=== PATIENT | male | born 2005 | race Caucasian/White ===

== ENCOUNTER 2023-04-24 23:26 | Emergency (ER) | payer OTHER, BC, SELFPAY ==
[2023-04-24 23:48] VITALS: BP 154/84; PULSE 110; RESP 18; TEMP 36.7; O2SAT 95; BMI 26.4
[2023-04-25] VITALS (39 sets, daily range): BP systolic 121–135; BP diastolic 75–97; PULSE 78–111; RESP 18–20; TEMP 36.6–37; O2SAT 89–98
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
[2023-04-25] MEDS: ONDANSETRON 2 MG/ML inj 4 MG IVP (00:47)
[2023-04-25] MEDS: 0.9 % SODIUM CHLORIDE 1000 ml 1,000 ML IV (00:48)
[2023-04-25 01:04] LABS: Basophils Absolute Auto 0.09 K/uL (0.00-0.30); Basophils Percent Auto 1.7 % (0.0-3.0); Eosinophils Absolute Auto 0.15 K/uL (0.00-0.50); Eosinophils Percent Auto 2.8 % (0.0-7.0); Hematocrit 42.9 % (37.0-53.0); Immature Granulocytes Abs Auto 0.01 K/uL (0.00-0.30); Immature Granulocytes Pct Auto 0.2 %; Lymphocytes Absolute Auto 1.89 K/uL (0.90-2.90); Lymphocytes Percent Auto 35.6 % (20-44); Mean Corpuscular HGB Conc 33 gm/dL (32-36); Mean Corpuscular Hemoglobin 32 pg (26-34); Mean Corpuscular Volume 98 fL (80-100); Monocytes Percent Auto 11.7 % (0.0-11.0); Neutrophils Absolute Auto 2.55 K/uL (1.7-7.0); Platelet Count* 308 K/uL (140-440); RDW Coefficient of Variation % 13.9 % (11.5-15.5); White Blood Count* 5.31 K/uL (4.50-11.00)
--- NOTE | 2023-04-25 01:07 | ED.NURSE ---
Pt started on 2L via NC @ 0053. Sats dip to mid 80's on room air while asleep. Dr. Cervantes aware.
[2023-04-25 01:09] LABS: Slide Review Reflex No
[2023-04-25 01:17] LABS: Albumin* 4.7 g/dL (3.3-5.0); Chloride* 109 mmol/L (96-114); Sodium* 148 mmol/L (135-149)
[2023-04-25 01:18] LABS: Potassium* 4.3 mmol/L (3.6-5.1)
[2023-04-25 01:20] LABS: Anion Gap 11 mEq/L (7-15); Carbon Dioxide* 28 mmol/L (20-32); Creatinine* 0.6 mg/dL (0.6-1.2); Est. Creatinine Clearance* 223.79; Estimated Glomerular Filt Rate 143 ml/min
[2023-04-25 01:21] LABS: Alanine Aminotransferase* 262 U/L (4-50); Alkaline Phosphatase* 49 U/L (65-260); Aspartate Amino Transferase* 334 U/L (12-35); Bilirubin Total* 0.3 mg/dL (0.1-1.5); Blood Urea Nitrogen* 8 mg/dL (5-24); Calcium* 9.3 mg/dL (8.7-10.8); Glucose* 112 mg/dL (60-115); Magnesium* 1.7 mg/dL (1.5-2.6); Total Protein* 7.9 g/dL (6.0-8.3)
[2023-04-25 01:25] LABS: Acetaminophen* < 10.0 ug/mL (10.0-30.0); C Reactive Protein* < 0.5 mg/dL (0.5-1.0); Salicylate* < 1.0 mg/dL (1.0-10)
[2023-04-25 01:30] LABS: Ethanol* 0.53 % (0.01-0.03)
[2023-04-25] MEDS: MAGNESIUM IV 2 GM/50 ML PIGGYBACK IVPB (06:44)
--- NOTE | 2023-04-25 07:45 | ED.NURSE ---
awake and oriented. calm. drinking fluids
--- NOTE | 2023-04-25 10:31 | ED.NURSE ---
wakes to name. wishes to continue to sleep awhile longer
--- NOTE | 2023-04-25 12:07 | ED.NURSE ---
spoke with therapist, with pt's permission and grandmother. pt considering detox at this time. Sonia Bailey evaluating
[2023-04-25] MEDS: LORazepam 1 MG TABLET PO (12:08)
[2023-04-25 12:31] LABS: Appearance Urine Clear (Clear); Bilirubin Urine Negative (Negative); Blood Urine Negative (Negative); Color Urine Dark yellow (Yellow); Glucose Urine Negative (Negative); Ketones Urine Negative (Negative); Leukocyte Esterase Urine Negative (Negative); Nitrite Urine Negative (Negative); Protein Urine 1+ (Negative); Specific Gravity Urine 1.025 (1.000-1.030); Urobilinogen Urine 0.2 (0.2-1.0)
[2023-04-25 12:32] LABS: Ethanol* 0.16 % (0.01-0.03)
[2023-04-25 12:58] LABS: Amphetamine Screen Urine Negative (Negative); Barbiturate Screen Urine Negative (Negative); Benzodiazepines Screen Urine Negative (Negative); Cannabinoid Screen Urine POSITIVE (Negative); Cocaine Screen Urine Negative (Negative); Methadone Screen Urine Negative (Negative); Methamphetamines Screen Urine Negative (Negative); Opiate Screen Urine Negative (Negative); Oxycodone Screen Urine Negative (Negative); Phencyclidine Screen Urine Negative (Negative); Tricyclic Antidepressant Urine Negative (Negative)
[2023-04-25 13:00] LABS: RBC Urine 0-2 (0-2); Squamous Epithelial Cell Urine Few (None-Few)
[2023-04-25 13:01] LABS: Mucus Urine Many
[2023-04-25] MEDS: LORazepam 2 MG/ML inj 1 MG IVP (15:07)
[2023-04-25] MEDS: NICOTINE 21 MG PATCH 1 PATCH TRANSDERMA (15:07)
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
[2023-04-30] MEDS: LORazepam 1 MG TABLET PO (13:13)
== END 2023-04-25 15:19 | disposition other institution (70) ==
PROVIDERS: Family Medicine; Emergency Provider Family Medicine
DX: F10.129 Alcohol abuse with intoxication, unspecified (principal); F19.90 Other psychoactive substance use, unspecified, uncomplicated
CPT/HCPCS: 36415; 80053; 80143; 80179; 80306; 81001; 82077; 83735; 85025; 86140; 94761; 96365; 96375; 99284; A0425; A0426; A9270; J2060; J2405; J3411; J3475; J7030; S4990

== ENCOUNTER 2024-12-13 17:30 | Emergency (ER) | payer OTHER, BC, SELFPAY ==
--- OUTSIDE RECORDS SUMMARY | 2024-12-13 17:32 | XMS_ITS | Clinical Summary ---
Author Organization [facility] Address [address] [place] [address] Care Team Providers Care Clinical Rehabilitation Specialist Name Role Phone Collette Huggins D.O. Primary Care Provider [phone] Source Comments Patient records contain information from all sites at [facility]. For routine questions regarding patient records, call [phone] during business hours, M-F 8:00 AM - 5:00 PM Central Time. Record requests for emergency care only can be directed to [phone] at any time.[facility] Allergies Active Allergy Reactions Criticality Noted Date Comments House Dust Mite Other (see comments) 10/14/2018 Nasal congestion, cough, watery eyes Other reaction(s): *Unknown Nasal congestion, cough, watery eyes Medications * This document contains information received from the source organization and may not represent a complete record from that organization. dextroamphetami ne sulfate (DEXTROSTAT) 10 mg tablet TAKE 1 TABLET BY MOUTH ONCE A DAY IN THE AFTERNOON NO LATER THAN 2PM 3 Active dextroamphetami ne sulfate (DEXEDRINE SPANSULE) 15 mg ER capsule Take 2 capsules by mouth daily. 3 Active dextroamphetami ne sulfate (Dexedrine Spansule) 10 mg ER capsule Take 1 capsule by mouth daily. 4 Active meloxicam (Mobic) 15 mg tabletIndicatio ns:Pain Back Lumbar,Muscle Spasm Of Back Take 1 tablet (15 mg total) by mouth daily. 30 tablet 1 4 Active cyclobenzaprine (FlexeriL) 10 mg tabletIndicatio ns:Pain Back Lumbar,Muscle Spasm Of Back Take 1 tablet (10 mg total) by mouth 3 (three) times a day as needed for muscle spasms. 30 tablet 1 4 Active triamcinolone (Kenalog) 0.1 % ointment Apply 1 Application topically 2 (two) times a day as needed for irritation or rash. Apply to hands . 80 g 11 5 Active folic acid 1 mg tablet Take 1 tablet (1 mg total) by mouth daily. 30 tablet 11 5 Active cyanocobalamin (Vitamin B-12) 1,000 mcg tablet Take 1 tablet (1,000 mcg total) by mouth daily. 90 tablet 3 5 Active Active Problems Problem Noted Date Diagnosed Date Pain Back Lumbar 04/29/2024 Family History Of Human Immunodeficiency Virus H IV Disease 10/03/2021 Fatty Liver 10/03/2021 Cannabis Moderate Or Severe Use Disorder (Dependence) With Intoxication Uncomplicated 09/05/2021 Hypertension Essential Primary 09/05/2021 Testosterone Low 09/05/2021 Hyperlipidemia 09/05/2021 Elevated Liver Enzyme Test 09/05/2021 Asthma Mild Intermittent With History Of Tobacco Use 09/05/2021 Body Mass Index 45.0 To 49.9 Adult 09/05/2021 Assessment & Plan (05/31/2023 12:56 PM CDT): He is low cholesterol an low tg diet and exercise and losing weight. Posttraumatic Stress Disorder Prolonged 01/22/20 19 Attention Deficit Disorder Combined Type 019 Other Psychoactive Substance Moderate Or Severe Use Disorder (Dependence) In Remission 01/02/2019 Panic Disorder Episodic Paroxysmal Anxiety 10/15 Posttraumatic Stress Disorder Brief 03/11/2018 Anxiety Generalized Disorder 11/08/2017 Nicotine Dependence Cigarettes With Withdrawal 0 10/04/2017 Alcohol Moderate Or Severe U se Disorder (Dependence) Uncomplicated 09/18/2017 Cannabis Mild Use Disorder (Abuse) Uncomplicated 09/18/2017 Other Psychoactive Substance Use Unspecified With Psychoactive Substance Induced Mood Disorder 09/18/2017 Disruptive Mood Dysregulation Disorder 8 Assessment & Plan (05/31/2023 12:41 PM CDT): Continue to monitor seeing psychatirst Depression Major Recurrent Mild 01/19/2016 Overview (12/26/2016): Depression Major NOS Asthma Mild Persistent 08/17/2014 Overview (12/26/2016): Asthma Mild Persistent Rhinitis Allergic 08/17/2014 Resolved Problems Problem Noted Date Diagnosed Date Resolved Date Encephalopathy Toxic 01/18/2019 019 Agitation 01/17/2019 01/20/2019 Morbid Obesity Body Mass Ind ex 40.0-44.9 Adult 11/26/2018 09/20/2024 Overweight Pediatric Body Ma ss Index 85-94th Percentile Age 2 Or Older 08/17/2014 09/20/2024 Encounters Date Type Department Care Team Description 10/19/2024 Results Follow-Up Department of Family Medicine, [facility], in [place], [place] [address], [place] [address] Collette Huggins D.O. CBC with Differential, Blood, Comprehensive Metabolic Panel, GGT (Gamma-Glutamyltransfer ase), Additional followed-up results: 4 from Last 3 Months Immunizations Immunization Administration Dates Next Due 4vHPV (discontinued) 04/06/2016,01/19/2016 9vHPV 10/03/2017 DTaP (Infanrix, Tripedia) 08/30/2004,,2003,2002 DTaP-IPV 03/31/2009 HepA Pediatric/Adolescent 04/06/2016,10/04/2015 Hib-HepB 08/30/2004,2003,2003 IPV 08/30/2004,2003,2003 Influenza, Unspecified 06/22/2015,2013,07/04/2013,2011,06/07/2011,06/17/2010,06/23/2008,1 09/09/2006,06/19/2005,05/13/2004 MCV4 (Menactra)(Discontinued) 04/08/2021, 016 MMR 03/31/2009,05/13/2004 PCV7 (discontinued) 2003,2003 PPD Test 01/11/2018 Tdap 09/24/2014 JOANA 03/31/2009,05/13/2004 influenza trivalent vaccine (6 months and older)(PF) 06/29/2017 influenza vaccine quad (FLUZONE/FLUARIX) (6 months and older)(PF) 07/03/2018 Family History Medical History Relation Name Comments SIDS Brother maternal 08/07 2015, probably SIDS Anxiety disorder Maternal Grandmother Asthma Maternal Grandmother Depression Maternal Grandmother Sleep apnea Maternal Grandmother Alcohol abuse Mother Anxiety disorder Mother Depression Mother Drug abuse Mother Schizoaffective disorder Mother chrissy ck therapy. 2016 of possible overdose Suicide Attempts Mother Relation Name Status Comments Brother maternal 08/07 Father Other Maternal Grandmother Alive Mother Alive Social History Tobacco Use Types Packs/Day Years Used Date Smoking Tobacco: Every Day Cigarettes 3 7 Passive Smoke Exposure: Current Smokeless Tobacco: Current Snuff Tobacco Cessation:Ready to Q uit: Not Asked; Counseling Given: Not Answered Comments:Smokes about 3-5 cigarettes per day. Uses nicotine gum. Alcohol Use Standard Drinks/Week Comments Yes 4 (1 standard drink = 0.6 oz pure alcohol) Drinking 4 drinks each day, has been cutting back in the last month [facility] Utilities Answer Date Recorded In the past 12 months has [employer] gas, oil, or water [employer] threatened to shut off services in your home? No 09/04/2024 PHQ-2 Answer Date Recorded PHQ-2 Score 1 09/04/2024 Exercise Vital Sign Answer Date Recorde d On average, how many days pe r week do you engage in moderate to strenuous exercise (like a brisk walk)? 5 days 09/04/2024 On average, how many minutes do you engage in exercise at this level? 90 min 09/04/2024 Hunger Vital Sign Answer Date Recorded Within the past 12 months, y ou worried that your food would run out before you got the money to buy more. Never true 09/04/19 25 Within the past 12 months, t he food you bought just didn't last and you didn't have money to get more. Never true 09/04/2024 PRAPARE - Transportation Answer Date Re corded In the past 12 months, has l ack of transportation kept you from medical appointments or from getting medications? Patient declined 09/04/2024 In the past 12 months, has l ack of transportation kept you from meetings, work, or from getting things needed for daily living? Patient declined 09/04/2024 Depression Answer Date Recor ded PHQ-9 Total Score (max 27) 8 09/04 Nutrition Answer Date Recorded On average, how many serving s of fruits and vegetables do you eat per day (serving size is equal to 1 cup or approximately the size of a tennis ball)? 3-5 09/04/2024 Dental Answer Date Recorded Dental: Regular Dentist No 09/04/19 Employment Answer Date Recorded Employment status Employed and actively working without restrictions 09/04/2024 Housing Stability Answer Date Recorded What is your living situation today? I h ave a place to live today, but I am worried about losing it in the future 09/04/2024 Sex and Gender Information Value Date Recorded Sex Assigned at Male 09/04/2024 8:44 AM SENIOR CYBER INTELLIGENCE ANALYST Legal Sex Male 5:30 AM SENIOR CYBER INTELLIGENCE ANALYST Gender Identity Male 09/04/2024 8:44 AM SENIOR CYBER INTELLIGENCE ANALYST Sexual Orientation Straight 09/04/2024 8: 44 AM SENIOR CYBER INTELLIGENCE ANALYST Last Filed Vital Signs Vital Sign Reading Time Taken Comments Blood Pressure 122/78 09/04/2024 9:12 AM SENIOR CYBER INTELLIGENCE ANALYST Rec heck Pulse 109 09/04/2024 9:08 AM SENIOR CYBER INTELLIGENCE ANALYST Temperature 36.7 C (98.1 F) 09/04/2024 9:08 AM SENIOR CYBER INTELLIGENCE ANALYST Respiratory Rate 18 10/03/2021 2:56 PM SENIOR CYBER INTELLIGENCE ANALYST Oxygen Saturation 100% 07/05/2021 2:27 PM SENIOR CYBER INTELLIGENCE ANALYST Inhaled Oxygen Concentration - - Weight 110 kg (243 lb 2.7 oz) 09/04/2024 9:08 AM SENIOR CYBER INTELLIGENCE ANALYST Height 184.5 cm (6' 0.64) 09/04/2024 9:08 AM CS T Body Mass Index 32.4 09/04/2024 9:08 AM SENIOR CYBER INTELLIGENCE ANALYST Plan of Treatment Health Maintenance Due Date Last Done Comments 1 week Well Child Check-Up 2003 1 month Well Child Check-Up 2003 2 month Well Child Check-Up 2003 4 month Well Child Check-Up 2003 9 month Well Child Check-Up 2003 15 month Well Child Check-Up 06/30/2004 18 month Well Child Check-Up 09/30/2004 2 year Well Child Check-Up 03/30/2005 30 month Well Child Check-Up 09/30/2005 3 year Well Child Check-Up 03/30/2006 Well Child Check-Up Completed in Past Year 03/30/2006 5 year Well Child Check-Up 03/30/2008 6 year Well Child Check-Up 03/30/2009 7 year Well Child Check-Up 03/30/2010 8 year Well Child Check-Up 03/30/2011 10 year Well Child Check-Up 03/30/2013 12 year Well Child Check-Up 03/30/2015 13 year Well Child Check-Up 03/30/2016 14 year Well Child Check-Up 03/30/2017 15 year Well Child Check-Up 03/30/2018 16 year Well Child Check-Up 04/26/2019 17 year Well Child Check-Up 03/30/2020 18 year Well Child Check-Up 03/30/2021 19 year Well Child Check-Up 03/30/2022 Pneumococcal vaccine (0-49 years) (1 of 2 - PCV) 2022 2003, 2003 19 year Well Child Check-Up 03/30/2024 Well Child Check-Up (WCC) 03/30/2024 COVID-19 Vaccine ( - season) 2024 Influenza Vaccine (#1) 2024 8, 06/29/2017, 06/22/2015, Additional history exists DTaP,Tdap,and Td Vaccines (7 - Td or Tdap) 09/24/2024 09/24/2014, 03/31/2009, 08/30/2004, Additional history exists Asthma Action Plan 10/16/2024 10/17/2023, 0 02/01/2017, 07/04/2016 Asthma Control Test Questionnaire 10/16/2024 09/04/2024, 07/18/2023, 05/31/2023, Additional history exists Depression Monitoring (PHQ-9) 01/02/2025 09/04/2024 TB Screening during Well Child Visit 04/29/2025 04/29/2024 Tobacco Cessation counseling 04/29/2025 04/29/2024 Visit: Chronic Disease, age 18+ 04/29/2025 04/29/2024 Asthma Management/Exacerbation Questionnaire (AMQ/AEQ) 09/04/2025 09/04/2024, 07/18/2023 Office Visit for Blood Pressure Check / Re-check 09/04/2025 09/04/2024 Lipid (Cholesterol) Screening 09/09/2025 09/09/2024, 06/01/2023, 08/19/2021, Additional history exists Hepatitis B Vaccines Completed 08/30/2004, 2003, 2003 IPV Vaccines Completed 03/31/2009, 08/07, 2003, Additional history exists Varicella Vaccines Completed 03/31/2009, 05/13/2004 Hepatitis A Vaccines Completed 04/06/2016, 10/04/19 16 HPV Vaccines Completed 10/03/2017, 08/2015, 01/19/2016 Meningococcal Vaccine Completed 04/08/2021, 016 HIV Screening Completed 10/05/2021 Hearing Screening during Well Child Visit Addressed 05/30/2023 (Performed elsewhere) Overridden with the intention of not completing the topic 20 year Well Child Check-Up Completed 05/31/2023 Depression Monitoring (PHQ-9 for quality tracking) Completed 09/04/2024 Procedures Procedure Name Priority Date/Time Associated Diagnosis Comments LIPID PANEL, S Routine 09/09/2024 12:17 PM SENIOR CYBER INTELLIGENCE ANALYST Alcohol Moderate Or Severe Use Disorder (Dependence) Uncomplicated (HCC) Cannabis Moderate Or Severe Use Disorder (Dependence) With Intoxication Uncomplicated (HCC) Nicotine Dependence Cigarettes With Withdrawal Attention Deficit Disorder Combined Type Disruptive Mood Dysregulation Disorder (HCC) Dermatitis Hand Anemia B12 Deficiency Dietary Folate Deficiency Anemia Hyperlipidemia Mixed Fatty Liver Alcoholic HIV-1/-2 AG AND AB SCREEN, PLASMA Routine 10/05/2021 3:45 PM SENIOR CYBER INTELLIGENCE ANALYST Family History Of Human Immunodeficiency Virus HIV Disease from Last 3 Months or Most Recently Relevant to Health Maintenance Results * Lipid Panel (09/09/2024 12:17 PM SENIOR CYBER INTELLIGENCE ANALYST) Triglycerides 66 mg/dL 09/09/2024 1:37 PM SENIOR CYBER INTELLIGENCE ANALYST [facility]AT Comment: ----REFERENCE VALUE---- Normal: <150 mg/dL Borderline High: 150-199 mg/dL High: 200-499 mg/dL Very High: > or =500 mg/dL Cholesterol, Total 168 mg/dL 2024 1:37 PM SENIOR CYBER INTELLIGENCE ANALYST [employer]AT Comment: ----REFERENCE VALUE---- Desirable: < 200 mg/dL Borderline High: 200 - 239 mg/dL High: > or = 240 mg/dL Cholesterol, LDL, Calculated 92 mg/dL 09/09/2024 1:37 PM SENIOR CYBER INTELLIGENCE ANALYST [employer]AT Comment: ----REFERENCE VALUE---- Desirable: <100 mg/dL Above Desirable: 100-129 mg/dL Borderline High: 130-159 mg/dL High: 160-189 mg/dL Very High: >=190 mg/dL ----ADDITIONAL INFORMATION---- LDL cholesterol calculated using the Mcnair/NIH equation. Cholesterol, HDL 63 >=40 mg/dL 09/09/19 1:37 PM SENIOR CYBER INTELLIGENCE ANALYST OWAT Cholesterol, Non-HDL, Calculated 105 mg/dL 09/09/2024 1:37 PM SENIOR CYBER INTELLIGENCE ANALYST [employer] Comment: ----REFERENCE VALUE---- Desirable: <130 mg/dL Above Desirable: 130-159 mg/dL Borderline High: 160-189 mg/dL High: 190-219 mg/dL Very High: > or =220 mg/dL Fasting (8 HR or more) Yes 09/09/2024 12:17 PM SENIOR CYBER INTELLIGENCE ANALYST [employer]AT Blood (Blood, Venous) 09/09/2024 12:17 PM SENIOR CYBER INTELLIGENCE ANALYST 09/09/2024 12:21 PM SENIOR CYBER INTELLIGENCE ANALYST us Collette Huggins D.O. LAB BLOOD ADD-ON Final Result [facility] [address] [place] [address], [facility] [place] [address] [place] [address] * HIV-1/-2 Ag and Ab Screen, Plasma (10/05/2021 3:45 PM SENIOR CYBER INTELLIGENCE ANALYST) Pathologist [facility] HIV Ag/Ab Screen, P Negative Negative 10/06/2021 1:13 PM SENIOR CYBER INTELLIGENCE ANALYST [facility] Comment: Negative result does not rule out HIV infection. If exposure to HIV infection occurred <14 days ago, contact the laboratory to request addition of HIV-1 RNA detection / quantification test. HIV-1 p24 Ag Screen, P Negative Negative 10/06/2021 1:13 PM SENIOR CYBER INTELLIGENCE ANALYST [facility] Comment: Negative result does not rule out HIV infection. If exposure to HIV infection occurred <14 days ago, contact the laboratory to request addition of HIV-1 RNA detection / quantification test. HIV-1 Ab Screen, P Negative Negative 2021 1:13 PM SENIOR CYBER INTELLIGENCE ANALYST [facility] Comment: Negative result does not rule out HIV infection. If exposure to HIV infection occurred <14 days ago, contact the laboratory to request addition of HIV-1 RNA detection / quantification test. HIV-2 Ab Screen, P Negative Negative 2021 1:13 PM SENIOR CYBER INTELLIGENCE ANALYST [facility] Comment: Negative result does not rule out HIV infection. If exposure to HIV infection occurred <14 days ago, contact the laboratory to request addition of HIV-1 RNA detection / quantification test. Blood (Blood, Venous) 10/05/2021 3:45 PM SENIOR CYBER INTELLIGENCE ANALYST 10/06/2021 11:18 AM SENIOR CYBER INTELLIGENCE ANALYST Latasha Boykin M.D. LAB MICROBIOLOGY - BLOOD O RDERABLES Final Result [facility] [address] [place] [address], [facility] [place] [address] [place] [address] from Last 3 Months or Most Recently Relevant to Health Maintenance Insurance [facility] [place] [address] [employer] Advance Directives For more information, please contact: [phone] * Full Code (Latest Code Status on File) Date Activated Date Inactivated Comments 01/18/2019 5:12 PM 01/24/2019 1:59 PM Question Answer Comments Full Code: Not Discussed Due to: Not medically appropriate * Full Code Date Activated Date Inactivated Comments 01/17/2019 10:12 PM 01/18/2019 4:15 PM Question Answer Comments Full Code: Not Discussed Due to: Not medically appropriate Care Teams Clinical Rehabilitation Specialist Relationship Specialty Start Date End Date Collette Huggins D.O. [address] [facility] [place] [address] PCP - General Family Medicine 05/28/23
--- OUTSIDE RECORDS SUMMARY | 2024-12-13 17:32 | XMS_ITS | Encounter Summary ---
Author Organization [facility] Address [address] [place] [address] Care Team Providers Care Manager Search Engine Name Role Phone Collette Huggins D.O. Primary Care Provider [phone] Encounter Details Date Type Department Care Team (Latest Contact Info) Description 10/19/2024 Results Follow-Up Department of Family Medicine, [facility], in [place], [place] [address] [address] Collette Huggins D.O. [address] [address] CBC with Differential, Blood, Comprehensive Metabolic Panel, GGT (Gamma-Glutamyltransfe rase), Additional followed-up results: 4 Social History Tobacco Use Types Packs/Day Years Used Date Smoking Tobacco: Every Day Cigarettes 3 7 Passive Smoke Exposure: Current Smokeless Tobacco: Current Snuff Comments:Smokes about 3-5 ci garettes per day. Uses nicotine gum. Alcohol Use Standard Drinks/Week Comments Yes 4 (1 standard drink = 0.6 oz pure alcohol) Drinking 4 drinks each day, has been cutting back in the last month [facility] Utilities Answer Date Recorded In the past 12 months has [employer] electric, gas, oil, or water company threatened to shut off services in your [...] money to buy more. Never true 09/04/19 Within the past 12 months, t he [...] Sex Assigned at Male 09/04/2024 8:44 AM PHYSICAL SCIENCE PROFESSOR Legal Sex Male 5:30 AM PHYSICAL SCIENCE PROFESSOR Gender Identity Male 09/04/2024 8:44 AM PHYSICAL SCIENCE PROFESSOR Sexual Orientation Straight 09/04/2024 8: 44 AM PHYSICAL SCIENCE PROFESSOR documented as of this encounter Miscellaneous Notes * Result Encounter Note - Collette Huggins D.O. - 10/19/2024 7:42 PM CDT B12 is elevated because he is getting enough in his diet. GGT normal Folate normal Comprehensive normal Thyroid normal and lipid panel normal documented in this encounter Plan of Treatment Not on file documented as of this encounter Visit Diagnoses Not on filedocumented in this encounter Additional Health Concerns Assessment Noted Time PHQ-9 Depression Total Score: 8 09/04/19 25 8:39 AM PHYSICAL SCIENCE PROFESSOR documented as of this encounter Care Teams Manager Search Engine Relationship Specialty Start Date End Date Collette Huggins D.O. [address] [place] [address] PCP - General Family Medicine 05/28/23 documented as of this encounter
--- OUTSIDE RECORDS SUMMARY | 2024-12-13 17:32 | XMS_ITS | Clinical Summary ---
Author Organization [facility] Address [address] [place] [address] Care Team Providers Care Radiological Engineer Name Role Phone Katlyn Persaud MD Primary Care Provider + Allergies Active Allergy Reactions Criticality Noted Date Comments House Dust Mite *Unknown 10/14/2018 Nasal congestion, cough, watery eyes Medications montelukast (SINGULAIR) 10 mg tablet Take 10 mg by mouth at bedtime. 1 7 Active fexofenadine (DEVANTE) 180 mg tablet Take 1 tablet by mouth once daily. 7 Active albuterol HFA 90 mcg/actuation inhalerIndications :Smoking Inhale 1-2 Puffs by mouth 4 times daily if needed. 1 Inhaler 9 Active amitriptyline (ELAVIL) 50 mg tabletIndications: Psychophysiologica l insomnia,ADHD (attention deficit hyperactivity disorder), combined type,Disruptive mood dysregulation disorder (HC),Trauma and stressor-related disorder TAKE 1 TABLET BY MOUTH AT BEDTIME 30 tablet 0 Active topiramate (TOPAMAX) 100 mg tabletIndications: DMDD (disruptive mood dysregulation disorder) (HC),Psychophysiol ogical insomnia,Weight loss TAKE 1 TABLET BY MOUTH AT BEDTIME 30 tablet 0 Active lisdexamfetamine (VYVANSE) 50 mg capsuleIndications :ADHD (attention deficit hyperactivity disorder), combined type Take 1 capsule by mouth once daily 30 capsule 0 Active Active Problems Problem Noted Date Diagnosed Date Polysubstance dependence in early, early partial, sustained full, or sustained partial remission 01/02/2019 Obesity (BMI 35.0-39.9 without comorbidity) 11/05 DMDD (disruptive mood dysregulation disorder) ADHD (attention deficit hype ractivity disorder), combined type 10/15/2018 Panic attacks 10/15/2018 Controlled substance agreement signed 09/09/2018 Overview (09/09/2018): Signed 09/09/18 Dr Saige Hall Psychiatry Trauma and stressor-related disorder 03/11/2018 ADHD (attention deficit hyperactivity disorder) evaluation 01/04/2018 Psychophysiological insomnia 01/04/2018 Alcohol dependence 09/18/2017 Cannabis abuse 09/18/2017 Substance induced mood disorder 09/18/2017 Disruptive mood dysregulation disorder 8 Nicotine dependence 09/14/2017 Family History Medical History Relation Name Comments No Known Problems Maternal Grandfather No Known Problems Maternal Grandmother Drug Abuse Mother The patient's m om of a drug overdose in 2016. Relation Name Status Comments Maternal Grandfather Alive Maternal Grandmother Alive Mother Social History Tobacco Use Types Packs/Day Years Used Date Smoking Tobacco: Every Day Cigarettes 0.3 1 Smokeless Tobacco: Never Tobacco Cessation:Ready to Q uit: Yes; Counseling Given: Yes Alcohol Use Standard Drinks/Week Comments Yes 0 (1 standard drink = 0.6 oz pure alcohol) occasional sometimes drink to blackout PHQ-2 Answer Date Recorded PHQ-2 Score 3 10/15/2018 Sex and Gender Information Value Date Recorded Sex Assigned at Not on file Legal Sex Male 3:08 PM ELECTROMEDICAL SERVICE ENGINEER Gender Identity Not on file Sexual Orientation Not on file Obstetrics History Last Filed Vital Signs Vital Sign Reading Time Taken Comments Blood Pressure 156/111 03/03/2023 6:19 AM CDT Pulse 117 03/03/2023 6:19 AM CDT Temperature 37.1 C (98.8 F) 03/03/2023 6:19 AM CDT Respiratory Rate 18 03/03/2023 6:19 AM CDT Oxygen Saturation 96% 03/03/2023 6:19 AM CDT Inhaled Oxygen Concentration - - Weight 117.9 kg (260 lb) 03/03/2023 6:18 AM CDT Height 182.9 cm (6') 03/03/2023 6:18 AM CDT Body Mass Index 35.26 03/03/2023 6:18 AM CDT Plan of Treatment Health Maintenance Due Date Last Done Comments Tdap 2014 HIV for age 15-65 2018 HPV series for age 9-26 (1 - Male 3-dose series) 2018 Depression screening for age 12+ 10/13/2020 10/14/2019, 06/05/2019, 04/03/2019, Additional history exists BMI (ht and wt on same day) for age 18+ 2021 Hepatitis C screening for age 18-79 2021 Pneumococcal series for age 6-49 (1 of 2 - PCV) 2022 Tetanus booster 2023 COVID-19 vaccine series (1 - season) 2024 Influenza Vaccine (Season Ended) 2025 Meningococcal series for age 11-21 Aged Out No longer eligible based on patient's age to complete this topic Insurance [place]AK [place]LLADO [id number] etouches [facility] on file ISAK [place]LLADO [id number] eriQoo [facility] [employer] [facility] [employer] [facility] [employer] Advance Directives * Full Code (Latest Code Status on File) Date Activated Date Inactivated Comments 09/17/2017 10:35 AM 09/19/2017 2:06 PM Question Answer Comments Code Status Discussion: Not Discussed Care Teams Radiological Engineer Relationship Specialty Start Date End Date Katlyn Persaud MD [address] [facility] [place] [address] PCP - General Pediatric 06/23/17
[2024-12-13 17:33] VITALS: BP 150/102; PULSE 892; RESP 18; TEMP 36.6; O2SAT 99; BMI 29.0
--- NOTE | 2024-12-13 17:52 | ED.GENADULT ---
HPI - General Adult General Chief complaint: Extremity Pain/Injury, Upper Stated complaint: Right arm pain and swelling Time Seen by Provider: 12/13/24 17:51 History of Present Illness HPI narrative: patient was napping this afternoon and when woke up the right arm was discolored, swelling, redness to hands, tingling , numbness, and shooting pain in the right arm. 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 this has gradually getting worse. 19-year-old young man presenting to the emergency department with concern right arm swelling. Had been sleeping or napping this afternoon and when he woke the right arm was swollen and discolored with some redness in tingling and numbness and shooting pain. This has admittedly improved a little bit. Has also been struggling with some rash or redness around the wrists and base of the hands. Does wear what mom describes as neoprene gloves while drumming practicing a couple hours a few times work. Also has a somewhat physical job. Involves a lot a lifting and can feel tingling in to the medial finger tips. This has been going on for some months. Does not have neck or back issues. No shortness of breath or exercise intolerance described. Also mentioned is that she suspects him to be due for tetanus update. Job could result in potential exposure. Related Data Home Medications ?Medication ?Instructions ?Recorded ?Confirmed dextroamphetamine sulfate 10 mg 10 mg PO DAILY PRN attention 04/24/23 12/13/24 capsule,extended release deficit hyperactivity disorder dextroamphetamine sulfate 15 mg 30 mg PO QAM 04/24/23 12/13/24 capsule,extended release acetylcysteine 600 mg capsule (NAC) 600 mg PO DAILY 12/13/24 12/13/24 Allergies Allergy/AdvReac Type Severity Reaction Status Date / Time No Known Drug Allergies Allergy Verified 12/13/24 17:45 Review of Systems Status of ROS: Reports: 6 or more systems reviewed and unremarkable except as noted in History and below [facility] Medical History Substance induced mood disorder ?F19.94 - Other psychoactive substance use, unspecified with psychoactive substance-induced mood disorder (ICD-10) Cannabis abuse ?F12.10 - Cannabis abuse, uncomplicated (ICD-10) Alcohol dependence ?F10.20 - Alcohol dependence, uncomplicated (ICD-10) Psychophysiologic insomnia ?F51.04 - Psychophysiologic insomnia (ICD-10) Trauma and stressor-related disorder ?F43.9 - Reaction to severe stress, unspecified (ICD-10) Controlled substance agreement signed ?Z79.899 - Other rn long term care (current) drug therapy (ICD-10) Panic attacks ?F41.0 - Panic disorder [episodic paroxysmal anxiety] (ICD-10) ADHD (attention deficit hyperactivity disorder) ?F90.9 - Attention-deficit hyperactivity disorder, unspecified type (ICD-10) DMDD (disruptive mood dysregulation disorder) ?F34.81 - Disruptive mood dysregulation disorder (ICD-10) Obesity ?E66.9 - Obesity, unspecified (ICD-10) Polysubstance abuse ?F19.10 - Other psychoactive substance abuse, uncomplicated (ICD-10) Smoking ?F17.200 - Nicotine dependence, unspecified, uncomplicated (ICD-10) Substance abuse ?F19.10 - Other psychoactive substance abuse, uncomplicated (ICD-10) Anxiety and depression ?F41.9 - Anxiety disorder, unspecified (ICD-10) ?F32.A - Depression, unspecified (ICD-10) Chronic alcohol abuse ?F10.10 - Alcohol abuse, uncomplicated (ICD-10) Social History Smoking Status: Current every day smoker How often do you have a drink containing alcohol: 4 or more times a week How many standard drinks containing alcohol do you have on a typical day: 10 or more How often do you have six or more drinks on one occasion: Daily or almost daily AUDIT-C Alcohol total score: 12 Non-prescribed substance use: marijuana (any form) and amphetamines/methamphetamines Exam Narrative: Exam Narrative: Mild erythema in his somewhat band about both wrists right greater than left. Ali suggestion of some confluent speckling. Not infectious though. Generally faintly erythematous hand right greater than left but without induration to suggest cellulitis. Is well-perfused peripherally. No loss of sensation. Good function good strength. No swelling in the supraclavicular area. Neck is supple. Phalen's is negative. Tinel's is somewhat positive. Overhead stress to gravity is uncomfortable but not really positive. Symptoms are somewhat reproduced also by palpation of the ulnar groove. This is bilateral. Const: Vital Signs, click to edit/add: Vital Signs - 24 hr 12/13/24 17:33 Temperature 97.9 F Pulse Rate [Pulse Oximeter] 892 H Respiratory Rate 18 Blood Pressure [Le ft Upper Arm] 150/102 H Pulse Oximetry 99 Oxygen Delivery Me thod Room Air Documenting provider has reviewed patient's vital signs: yes Course Vital Signs Vital signs: Initial Vital Signs Temperature 97.9 F 12/13/24 17:33 Temperature Source Temporal Artery Scan 12/13/24 17:33 Pulse Rate 892 H 12/13/24 17:33 Respiratory Rate 18 12/13/24 17:33 Blood Pressure 150/102 H 12/13/24 17:33 Blood Pressure Mean 118 H 12/13/24 17:33 Blood Pressure Position Sitting 12/13/24 17:33 Pulse Oximetry 99 12/13/24 17:33 Oxygen Delivery Method Room Air 12/13/24 17:33 Vital Signs Temperature 97.9 F 12/13/24 17:33 Pulse Rate 892 H 12/13/24 17:33 Respiratory Rate 18 12/13/24 17:33 Blood Pressure 150/102 H 12/13/24 17:33 Pulse Oximetry 99 12/13/24 17:33 Oxygen Delivery Method Room Air 12/13/24 17:33 Temperature 97.9 F 12/13/24 17:33 Pulse Rate 892 H 12/13/24 17:33 Respiratory Rate 18 12/13/24 17:33 Blood Pressure 150/102 H 12/13/24 17:33 Pulse Oximetry 99 12/13/24 17:33 Oxygen Delivery Method Room Air 12/13/24 17:33 Medications Administered Medications: Discontinued Medications Generic Name Dose Route Start Last Admin Trade Name Freq PRN Reason Stop Dose Admin Diphtheria/Tetanus/Acell Pertussis 0.5 ml 12/13/24 18:56 12/13/24 19:04 Tetanus/Diphth/Pertussis 0.5 Ml Syringe IM 12/13/24 18:57 0.5 ml .ONCE ONE Administration Medical Decision Making MDM Narrative Medical decision making narrative: I think symptoms here today but really brought him in was falling asleep on the right arm for excessive period of time. Appears to be developing somewhat of a dermatitis possibly related to sweating within his gloves or the actual gloves. In addition seems to have symptoms of an ulnar neuropathy along with possibly some median nerve irritation. This might be related both to job as well as regular drumming. This does not clearly seem to be a thoracic outlet issue. I did discuss potential imaging verses follow-up in primary care. Over time in the emergency department, right arm symptoms seem to have improved significantly. Following Adacel/DTaP update, they would prefer to follow-up in primary care. See patient discharge plan for further discussion As discussed you may have a bit of dermatitis or reaction to the gloves or maybe sweating within the gloves that is occurring regularly. Might need to try some other options and rotate them? You also appear to be having discomfort in your finger tips not inconsistent with repeated activities that might be irritating both the median nerve and the ulnar nerve. Yes. I would follow-up with your primary care provider to discuss/evaluate this further and consider physical therapy involvement/suggestions. Medical Records Medical records reviewed: Yes I reviewed the patient's medical records Discharge Plan Discharge Clinical Impression: Radiculopathy Patient Disposition: Home w/ Parent or Adult Condition: Improved Additional Instructions: As discussed you may have a bit of dermatitis or reaction to the gloves or maybe sweating within the gloves that is occurring regularly. Might need to try some other options and rotate them? You also appear to be having discomfort in your finger tips not inconsistent with repeated activities that might be irritating both the median nerve and the ulnar nerve. Yes. I would follow-up with your primary care provider to discuss/evaluate this further and consider physical therapy involvement/suggestions. Prescriptions: No Action dextroamphetamine sulfate 15 mg capsule, extended release 30 mg PO QAM dextroamphetamine sulfate 10 mg capsule, extended release 10 mg PO DAILY PRN (Reason: attention deficit hyperactivity disorder) acetylcysteine [NAC] 600 mg capsule 600 mg PO DAILY Follow Up/Referrals: Provider,Not a Local [Primary Care Provider] - Stand Alone [facility]: [facility] Info Instructions
[2024-12-13] MEDS: TETANUS/DIPHTH/PERTUSSIS 0.5 ML SYRINGE IM (19:04)
--- OUTSIDE RECORDS SUMMARY | 2024-12-13 19:12 | XMS_ITS | Encounter Summary ---
Author Organization [facility] Address [address] [place] [address] Care Team Providers Care Control Integration Engineer Name Role Phone Collette Huggins D.O. Primary Care Provider [phone] Encounter Details Date Type Department Care Team (Latest Contact Info) Description 10/19/2024 Results Follow-Up Department of Family Medicine, [facility], in [place], [place] [address] [address] Collette Huggins D.O. [address] [address] CBC with Differential, Blood, Comprehensive [...] been cutting back in the last month [facility] Utilities Answer Date Recorded In the past 12 months has [employer] electric, gas, oil, or water company threatened [...] Sex Assigned at Male 09/04/2024 8:44 AM BEAUTY OPERATOR Legal Sex Male 5:30 AM BEAUTY OPERATOR Gender Identity Male 09/04/2024 8:44 AM BEAUTY OPERATOR Sexual Orientation Straight 09/04/2024 8: 44 AM BEAUTY OPERATOR documented as of this encounter Miscellaneous Notes [...] Total Score: 8 09/04/19 25 8:39 AM BEAUTY OPERATOR documented as of this encounter Care Teams Control Integration Engineer Relationship Specialty Start Date End Date Collette Huggins D.O. [address] [place] [address] PCP - General Family Medicine 05/28/23 documented as of this encounter
--- OUTSIDE RECORDS SUMMARY | 2024-12-13 19:12 | XMS_ITS | Clinical Summary ---
Author Organization [facility] Address [address] [place] [address] Care Team Providers Care Manager Customer Name Role Phone Collette Huggins D.O. Primary Care Provider [phone] Source Comments Patient records contain information from all sites at [facility]. For routine questions regarding patient records, call [phone] during business hours, M-F 8:00 AM - 5:00 PM Central Time. Record requests for emergency care only can be directed to [phone] at any time.[facility] Allergies Active Allergy Reactions Criticality Noted Date [...] 10/19/2024 Results Follow-Up Department of Family Medicine, [facility], in [place], [place] [address] [place] [address] Collette Huggins D.O. CBC with [...] been cutting back in the last month [facility] Utilities Answer Date Recorded In the past 12 months has [employer] gas, oil, or water [employer] threatened to shut off services in your [...] Sex Assigned at Male 09/04/2024 8:44 AM PICKLE PROCESSOR Legal Sex Male 5:30 AM PICKLE PROCESSOR Gender Identity Male 09/04/2024 8:44 AM PICKLE PROCESSOR Sexual Orientation Straight 09/04/2024 8: 44 AM PICKLE PROCESSOR Last Filed Vital Signs Vital Sign Reading Time Taken Comments Blood Pressure 122/78 09/04/2024 9:12 AM PICKLE PROCESSOR Rec heck Pulse 109 09/04/2024 9:08 AM PICKLE PROCESSOR Temperature 36.7 C (98.1 F) 09/04/2024 9:08 AM PICKLE PROCESSOR Respiratory Rate 18 10/03/2021 2:56 PM PICKLE PROCESSOR Oxygen Saturation 100% 07/05/2021 2:27 PM PICKLE PROCESSOR Inhaled Oxygen Concentration - - Weight 110 kg (243 lb 2.7 oz) 09/04/2024 9:08 AM PICKLE PROCESSOR Height 184.5 cm (6' 0.64) 09/04/2024 9:08 AM CS T Body Mass Index 32.4 09/04/2024 9:08 AM PICKLE PROCESSOR Plan of Treatment Health Maintenance Due Date [...] LIPID PANEL, S Routine 09/09/2024 12:17 PM PICKLE PROCESSOR Alcohol Moderate Or Severe Use Disorder (Dependence) Uncomplicated (HCC) Cannabis Moderate Or Severe Use Disorder (Dependence) With Intoxication Uncomplicated (HCC) Nicotine Dependence Cigarettes With Withdrawal Attention Deficit Disorder Combined Type Disruptive Mood Dysregulation Disorder (HCC) Dermatitis Hand Anemia B12 Deficiency Dietary Folate Deficiency Anemia Hyperlipidemia Mixed Fatty Liver Alcoholic HIV-1/-2 AG AND AB SCREEN, PLASMA Routine 10/05/2021 3:45 PM PICKLE PROCESSOR Family History Of Human Immunodeficiency Virus HIV Disease from Last 3 Months or Most Recently Relevant to Health Maintenance Results * Lipid Panel (09/09/2024 12:17 PM PICKLE PROCESSOR) Triglycerides 66 mg/dL 09/09/2024 1:37 PM PICKLE PROCESSOR [facility]AT Comment: ----REFERENCE VALUE---- Normal: <150 mg/dL Borderline High: 150-199 mg/dL High: 200-499 mg/dL Very High: > or =500 mg/dL Cholesterol, Total 168 mg/dL 2024 1:37 PM PICKLE PROCESSOR [facility]AT Comment: ----REFERENCE VALUE---- Desirable: < 200 mg/dL Borderline High: 200 - 239 mg/dL High: > or = 240 mg/dL Cholesterol, LDL, Calculated 92 mg/dL 09/09/2024 1:37 PM PICKLE PROCESSOR [facility]AT Comment: ----REFERENCE VALUE---- Desirable: <100 mg/dL Above Desirable: 100-129 mg/dL Borderline High: 130-159 mg/dL High: 160-189 mg/dL Very High: >=190 mg/dL ----ADDITIONAL INFORMATION---- LDL cholesterol calculated using the Mcnair/NIH equation. Cholesterol, HDL 63 >=40 mg/dL 09/09/19 1:37 PM PICKLE PROCESSOR OWAT Cholesterol, Non-HDL, Calculated 105 mg/dL 09/09/2024 1:37 PM PICKLE PROCESSOR OWAT Comment: ----REFERENCE VALUE---- Desirable: <130 mg/dL Above Desirable: 130-159 mg/dL Borderline High: 160-189 mg/dL High: 190-219 mg/dL Very High: > or =220 mg/dL Fasting (8 HR or more) Yes 09/09/2024 12:17 PM PICKLE PROCESSOR OWAT Blood (Blood, Venous) 09/09/2024 12:17 PM PICKLE PROCESSOR 09/09/2024 12:21 PM PICKLE PROCESSOR us Collette Huggins D.O. LAB BLOOD ADD-ON Final Result [facility] [address] [place] [address], [facility] [place] [address] [place] [address] * HIV-1/-2 Ag and Ab Screen, Plasma (10/05/2021 3:45 PM PICKLE PROCESSOR) Pathologist [facility] [place] HIV Ag/Ab Screen, P Negative Negative 10/06/2021 1:13 PM PICKLE PROCESSOR [facility] Comment: Negative result does not rule out HIV infection. If exposure to HIV infection occurred <14 days ago, contact the laboratory to request addition of HIV-1 RNA detection / quantification test. HIV-1 p24 Ag Screen, P Negative Negative 10/06/2021 1:13 PM PICKLE PROCESSOR [facility] Comment: Negative result does not rule out HIV infection. If exposure to HIV infection occurred <14 days ago, contact the laboratory to request addition of HIV-1 RNA detection / quantification test. HIV-1 Ab Screen, P Negative Negative 2021 1:13 PM PICKLE PROCESSOR [facility] Comment: Negative result does not rule out HIV infection. If exposure to HIV infection occurred <14 days ago, contact the laboratory to request addition of HIV-1 RNA detection / quantification test. HIV-2 Ab Screen, P Negative Negative 2021 1:13 PM PICKLE PROCESSOR [facility] Comment: Negative result does not rule out HIV infection. If exposure to HIV infection occurred <14 days ago, contact the laboratory to request addition of HIV-1 RNA detection / quantification test. Blood (Blood, Venous) 10/05/2021 3:45 PM PICKLE PROCESSOR 10/06/2021 11:18 AM PICKLE PROCESSOR Latasha Boykin M.D. LAB MICROBIOLOGY - BLOOD O RDERABLES Final Result [facility] [address] [place] [address], [facility] [place] [address] [place] [id number] from Last 3 Months or Most Recently Relevant to Health Maintenance Insurance [facility] [place] [address] [facility] [place] [employer] Advance Directives For more information, please contact: [phone] * Full Code (Latest Code Status on File) Date Activated Date Inactivated Comments 01/18/2019 5:12 PM 01/24/2019 1:59 PM Question Answer Comments Full Code: Not Discussed Due to: Not medically appropriate * Full Code Date Activated Date Inactivated Comments 01/17/2019 10:12 PM 01/18/2019 4:15 PM Question Answer Comments Full Code: Not Discussed Due to: Not medically appropriate Care Teams Manager Customer Relationship Specialty Start Date End Date Collette Huggins D.O. [address] [place] [address] PCP - General Family Medicine 05/28/23
--- OUTSIDE RECORDS SUMMARY | 2024-12-13 19:12 | XMS_ITS | Clinical Summary ---
Author Organization [facility] Address [address] [place] [address] Care Team Providers Care Senior Maintenance Technician Name Role Phone Katlyn Persaud MD Primary [...] on file Legal Sex Male 3:08 PM SCREENER OPERATOR Gender Identity Not on file Sexual Orientation [...] to complete this topic Insurance [place] [id number] [employer] [facility] on file [place] [id number] [employer] [facility] [employer] SOLUTIONS [facility] MEDICA HEALTH PLAN SOLUTIONS [facility] [employer] Advance Directives * Full Code (Latest Code Status on File) Date Activated Date Inactivated Comments 09/17/2017 10:35 AM 09/19/2017 2:06 PM Question Answer Comments Code Status Discussion: Not Discussed Care Teams Senior Maintenance Technician Relationship Specialty Start Date End Date Katlyn Persaud MD [address] [facility] [place] [address] PCP - General Pediatric 06/23/17
== END 2024-12-13 19:12 | disposition home or self-care (01) ==
LOC: ED 19:10
PROVIDERS: Emergency Provider Family Medicine
DX: M54.10 Radiculopathy, site unspecified (principal); R21 Rash and other nonspecific skin eruption; F17.210 Nicotine dependence, cigarettes, uncomplicated; Z23 Encounter for immunization
CPT/HCPCS: 90471; 90715; 99283; 99284